=== PATIENT | female | born 1975 | race Caucasian/White ===

== ENCOUNTER → 2017-03-12 | Outpatient (CLI) | payer MEDICAID | LOC: FIMAGING 13:57 | PROVIDERS: ATTEND Obstetrics & Gynecology | DX: O09.521 Supervision of elderly multigravida, first trimester (principal); O34.219 Maternal care for unspecified type scar from previous cesarean delivery; Z3A.12 12 weeks gestation of pregnancy ==

== ENCOUNTER → 2017-05-07 | Outpatient (CLI) | payer MEDICAID | LOC: FIMAGING 13:24 | PROVIDERS: ATTEND Obstetrics & Gynecology | DX: O09.522 Supervision of elderly multigravida, second trimester (principal); Z3A.20 20 weeks gestation of pregnancy; Z98.891 History of uterine scar from previous surgery ==

== ENCOUNTER 2017-07-13 19:10 | Inpatient (IN) | payer MEDICAID ==
[2017-07-13] MEDS ORDERED: MAGNESIUM SULF 4 GM/WATER 100 ML IV ONE ×2 (19:27→20:00)
[2017-07-13] MEDS ORDERED: LABETALOL HCL 5 MG/ML 20 ML MDV IV ONE (19:30)
[2017-07-13] MEDS ORDERED: BETAMETHASONE IM SYRINGE IM ONE (19:30)
[2017-07-13] MEDS ORDERED: OXYTOCIN/NORMAL SALINE 1,000 ML IV PRN (20:00)
[2017-07-13] MEDS ORDERED: AMMONIA AROMATIC 1 EACH AMP IH PRN (20:00)
[2017-07-13] MEDS ORDERED: OLIVE OIL 118 ML BTL MISC PRN (20:00)
[2017-07-13] MEDS ORDERED: LIDOCAINE 1% 300 MG/30 ML SDV SC PRN (20:00)
[2017-07-13] MEDS ORDERED: EPSOM SALT 454 GM TP PRN (20:00)
[2017-07-13] MEDS ORDERED: TERBUTALINE SULFATE 1 MG/ML VIAL IV PRN (20:00)
[2017-07-13] MEDS ORDERED: MISOPROSTOL 200 MCG TAB PO PRN (20:00)
[2017-07-13] MEDS ORDERED: CALCIUM GLUC 10% 1 GM/10 ML VIAL IVP PRN (20:00)
[2017-07-13] MEDS ORDERED: LR 1,000 ML IV PRN (20:00)
--- NOTE | 2017-07-13 20:04 | PDGENHP ---
History and Physical - Chief Complaint Severe Hypertension - History of Present Illness Ramya is a 42 yo at 30w0d by ROCIO of 09/21/17 (based on 10 wk US that was not consistent with ROCIO of 09/13/17 from LMP) who was told to present to [facility] L&D this afternoon after PIH labs came back markedly abnormal - told to come here due to EGA. H/o prior for arrest, but no h/o GHTN or PIH with her prior . No personal h/o chronic HTN or renal disease. No issues with elevated BP prior to this in this . Subjectively she reports that last week she started to develop worsening swelling initially in her feet, then upper legs, then in the past 1-2 days her hands and face. She denies any new/evolving GILLIAM or visual changes, no RUQ pain. Had labs drawn this afternoon that came back with LFT's > 200 and platelets < 100k - told to come right in. Initial pressures here in on L&D were 220/110 and repeat labs below confirmed severe pre-eclampsia. BP Initially controlled with IV hypertensive emergency protocol with Labetalol 20mg, then 40mg, then 80mg - all spaced out by 20 minutes with repeat doses given for persistent severe range pressures. She was started on mag with 4g bolus and then 2 g/hr immediately and also given BMZ immediately. While BP did get under control, we were seeing intermittent variable decels for baby that were never deep or recurrent (pt not really feeling discrete contractions), but persistent over her evaluation in triage. I performed a bedside ARVIND that was 7.62, baby also breech on that US. I did consult with Perinatology fellow javascript application developer and reviewed history and presentation and she agreed with a plan to move towards delivery. otherwise complicated by AMA, h/o CS as above (plan is repeat). There was concern for suspected bicuspid aortic valve on 20 wk anatomy scan but had f/u images (potentially echo?) that confirmed normal anatomy, per pt report. NIPT normal XY. History Information - Allergies/Home Medication List Allergies/Adverse Reactions: No Known Allergies Allergy (Unverified 07/13/17 19:30) I have personally reviewed and updated: family history, medical history, social history, surgical history - Past Medical History no pertinent PMH - Surgical History Reports: no pertinent surgical hx Review of Systems Review of Systems: ROS: 10pt was reviewed & negative except for what was stated in HPI & below Physical Exam Physical Exam: NAD, although appears tired. Lungs CTAB, Heart RRR. Abd gravid, soft, non-tender. No particular RUQ pain with palpation. LE +2 pitting edema, same with UE in the hands. +2 reflexes upper and lower bilat, 1 beat clonus. Temp Pulse Resp BP Pulse Ox 69 214/122 H 07/13/17 19:40 07/13/17 19:40 Lab Data & Imaging Review 07/13/17 20:08 07/13/17 20:08 LABORATORY 07/13/17 07/13/17 07/13/17 21:54 21:30 21:10 WBC RBC Hgb Hct MCV MCH MCHC RDW Plt Count MPV Neut % (Auto) Lymph % (Auto) [place] % (Auto) Eos % (Auto) Baso % (Auto) Nucleat RBC Rel Count Absolute Neuts (auto) Absolute Lymphs (auto) Absolute Monos (auto) Absolute Eos (auto) Absolute Basos (auto) Absolute Nucleated RBC Immature Gran % Immature Gran # PT REJ REJ INR REJ REJ Fibrinogen REJ REJ BUN Creatinine Estimated GFR Uric Acid Magnesium AST ALT Lactate Dehydrogenase Urine Color YENNY Urine Appearance HAZY Urine pH 5.0 (5.0-7.5) Ur Specific [place] 1.031 H (1.002-1.030) Urine Protein 3+ H (NEGATIVE) Urine Ketones NEGATIVE (NEGATIVE) Urine Blood 3+ H (NEGATIVE) Urine Nitrate NEGATIVE (NEGATIVE) Urine Bilirubin NEGATIVE (NEGATIVE) Urine Urobilinogen NEGATIVE EU EU (0.2-1.0) Ur Leukocyte Esterase NEGATIVE (NEGATIVE) Urine RBC 50-182 /hpf H /hpf (0-3) Urine WBC 10-15 /hpf H /hpf (0-3) Ur Epithelial Cells TRACE /lpf /lpf (NONE-1+) Hyaline Casts >182 /lpf H /lpf (0-1) Granular Casts 5-15 /lpf /lpf (0-1) Urine Mucus TRACE /lpf /lpf (NONE-1+) Ur Random Creatinine 83.4 mg/dL mg/dL U Random Total Protein Pending Urine Glucose NEGATIVE (NEGATIVE) Patient ABO/Rh Antibody Screen 07/13/17 07/13/17 07/13/17 20:08 20:08 20:08 WBC 11.86 10^3/uL H 10^3/uL (3.80-9.50) RBC 4.69 10^6/uL 10^6/uL (4.18-5.33) Hgb 14.2 g/dL g/dL (12.6-16.3) Hct 40.4 % % (38.0-47.0) MCV 86.1 fL fL (81.5-99.8) MCH 30.3 pg pg (27.9-34.1) MCHC 35.1 g/dL g/dL (32.4-36.7) RDW 13.2 % % (11.5-15.2) Plt Count 58 10^3/uL L 10^3/uL (150-400) MPV 11.8 fL H fL (8.7-11.7) Neut % (Auto) 73.7 % % (39.3-74.2) Lymph % (Auto) 15.7 % % (15.0-45.0) [place] % (Auto) 7.9 % % (4.5-13.0) Eos % (Auto) 1.0 % % (0.6-7.6) Baso % (Auto) 0.3 % % (0.3-1.7) Nucleat RBC Rel Count 0.3 % H % (0.0-0.2) Absolute Neuts (auto) 8.74 10^3/uL H 10^3/uL (1.70-6.50) Absolute Lymphs (auto) 1.86 10^3/uL 10^3/uL (1.00-3.00) Absolute Monos (auto) 0.94 10^3/uL H 10^3/uL (0.30-0.80) Absolute Eos (auto) 0.12 10^3/uL 10^3/uL (0.03-0.40) Absolute Basos (auto) 0.03 10^3/uL 10^3/uL (0.02-0.10) Absolute Nucleated RBC 0.03 10^3/uL H 10^3/uL (0-0.01) Immature Gran % 1.4 % H % (0.0-1.1) Immature Gran # 0.17 10^3/uL H 10^3/uL (0.00-0.10) PT INR Fibrinogen BUN 14 mg/dL mg/dL (7-23) Creatinine 0.6 mg/dL mg/dL (0.6-1.0) Estimated GFR > 60 Uric Acid 5.0 mg/dL mg/dL (2.5-6.8) Magnesium 2.1 mg/dL mg/dL (1.6-2.3) AST 259 IU/L H IU/L (14-46) ALT 203 IU/L H IU/L (9-52) Lactate Dehydrogenase > 2150 IU/L H IU/L (313-618) Urine Color Urine Appearance Urine pH Ur Specific [place] Urine Protein Urine Ketones Urine Blood Urine Nitrate Urine Bilirubin Urine Urobilinogen Ur Leukocyte Esterase Urine RBC Urine WBC Ur Epithelial Cells Hyaline Casts Granular Casts Urine Mucus Ur Random Creatinine U Random Total Protein Urine Glucose Patient ABO/Rh A POSITIVE Antibody Screen NEGATIVE 07/13/17 20:08 07/13/17 20:08 Patient ABO/Rh A POSITIVE 07/13/17 20:08 Uric Acid 5.0 mg/dL (2.5-6.8) 07/13/17 20:08 AST 259 IU/L (14-46) H 07/13/17 20:08 ALT 203 IU/L (9-52) H 07/13/17 20:08 Lactate Dehydrogenase > 2150 IU/L (313-618) H 07/13/17 20:08 Temp Pulse Resp BP Pulse Ox 69 172/103 H 07/13/17 20:47 07/13/17 20:47 Imaging Review: Bedside US shows fetus with normal FHR and gross motor movement. Fundal placenta. ARVIND 7.62. Fetus is breech with head maternal RUQ. FHR 130s, moderate variability, accels present by GA criteria, intermittent but persistent variable and questionably late decelerations. Assessment & Plan Assessment: 42 yo at 30w0d with pre-eclampsia with severe features, and non- reassuring FHR tracing. Discussed case with on-call MFM at who recommended moving towards delivery. Overall, quite severe disease with labs worsening just over first 4 hour interval, most recent plts 56k. BP's have been controlled with IV labetalol (20, 40 then 80mg IV doses), will start on PO controller med postop. Mag bolus and infusion started, will continue for 24 hrs postop, at least. FHR tracing category II with recurrent variable decels, some potentially late in morphology/timing. Normal ARVIND, but concerning the in this context. BMZ#1 given immediately upon admission, but this was approximately 2000 this evening - approximately 3 hrs prior to delivery. I had a long discussion with parents that while we might be able to stabilize BP for the moment, we should consider moving towards delivery for one bc of dropping platelets precluding safe delivery, and also because of concern for baby with tracing. Will goto sleep for , we have [address] and code white products ready in the event of extra bleeding. Counseled patient that hemorrhage can occur in this situation and that hysterectomy a possibility. FIRST COAT OPERATOR was able to speak with patient prior to going back to the OR. SARAH
[2017-07-13] MEDS ORDERED: LABETALOL HCL 5 MG/ML 20 ML MDV IVP ONE (20:07)
[2017-07-13] MEDS: Mag Sulf 500 ML IV SCH (20:22)
[2017-07-13] MEDS ORDERED: LIDOCAINE 2% JELLY 5 ML TUBE ONE (20:28)
[2017-07-13 21:23] LABS: PLATELET COUNT 58 10^3/uL (150-400)
[2017-07-13] MEDS ORDERED: ceFAZolin 2 GM/DEXTROSE 100 ML IV ONE ×2 (22:01→22:08)
[2017-07-13] MEDS ORDERED: LR 500 ML IV ONE ×2 (22:01→22:08)
[2017-07-13] MEDS ORDERED: fentaNYL 100 MCG/2 ML INJ ONE ×2 (22:18→22:19)
[2017-07-13] MEDS ORDERED: PROPOFOL/EMULSION 500 MG/50 ML BOTTLE IV ONE (22:19)
[2017-07-13] MEDS ORDERED: ROCURONIUM 50 MG/5 ML VIAL ONE (22:21)
[2017-07-13] MEDS ORDERED: LIDOCAINE 2% 5 ML SDV ONE (22:21)
[2017-07-13] MEDS ORDERED: DEXAMETHASONE 4 MG/ML VIAL ONE (22:22)
[2017-07-13] MEDS ORDERED: ONDANSETRON 4 MG/2 ML VIAL ONE (22:22)
[2017-07-13] MEDS ORDERED: ceFAZolin 2 GM/SWFI 2 GM/20 ML SYR IVP ONE (22:30)
[2017-07-13] MEDS ORDERED: LR 1,000 ML IV SCH ×2 (22:30)
[2017-07-13 22:44] LABS: PLATELET COUNT 46 10^3/uL (150-400)
[2017-07-13] MEDS ORDERED: OXYTOCIN 10 UNIT/ML VIAL ONE (22:45)
[2017-07-13] MEDS ORDERED: TERBUTALINE SULFATE 1 MG/ML VIAL ONE (22:45)
[2017-07-13] MEDS ORDERED: AMMONIA AROMATIC 1 EACH AMP IH ONE (22:45)
[2017-07-13] MEDS ORDERED: HEMABATE 250 MCG/1 ML AMP IM ONE (22:45)
[2017-07-13] MEDS ORDERED: LIDOCAINE 1% 300 MG/30 ML SDV ONE (22:45)
[2017-07-13] MEDS ORDERED: MISOPROSTOL 200 MCG TAB ONE (22:45)
[2017-07-13 22:52] LABS: INR 0.88 (0.83-1.16); PROTIME(PATIENT) 12.2 SEC (12.0-15.0)
[2017-07-13] MEDS ORDERED: OXYTOCIN 100 UNITS/10 ML VIAL ONE (23:32)
[2017-07-13] MEDS ORDERED: SUGAMMADEX SODIUM 200 MG/2 ML VIAL IVP ONE (23:48)
[2017-07-13] MEDS ORDERED: HYDROmorphONE/DILAUDID 2 MG/ML INJ ONE (23:57)
--- NOTE | 2017-07-14 00:05 | POSTOPPROG ---
Post Op Note Date of Operation: 07/14/17 Surgeon: Curt Alvarado Cost Manager: Maura Echeverria RN Anesthesia: GET(General Endotracheal) Pre-op Diagnosis: Pre-eclampsia with severe features, Non-reassuring FHR tracing Post-op Diagnosis: Same, Breech fetus with double nuchal cord and true knot Procedure: Unscheduled RLTCS at 30 wks Findings: Minimal scar tissue, breech fetus, double nuchal cord and true knot Inf/Abcess present in the surg proc area at time of surgery?: No EBL: 700cc Complications: None Specimen(s): Cord blood gasses collected, placenta sent to pathology.
--- NOTE | 2017-07-14 00:15 | SUROPNOTE ---
[facility] Operative Report - Surgery Date of Operation: 07/14/17 Surgeon: Curt Alvarado Flight Test Shop Mechanic: Maura Echeverria RN Anesthesia: GET(General Endotracheal) Pre-op Diagnosis: Pre-eclampsia with severe features, Non-reassuring FHR tracing Post-op Diagnosis: Same, Breech fetus with double nuchal cord and true knot Procedure: Unscheduled RLTCS at 30 wks Findings: Minimal scar tissue, breech fetus, double nuchal cord and true knot Inf/Abcess present in the surg proc area at time of surgery?: No EBL: 700cc Complications: None Specimen(s): Cord blood gasses collected, placenta sent to pathology. Technique: The patient was taken to the OR where we prepared to induce w general anesthesia. The patient was then positioned supine with a leftward tilt and a time-out was performed. She was given weight-based antibiotics prior to skin incision - Ancef 2 grams. The abdomen was prepped and draped in normal sterile fashion. As soon as we were given the OK from anesthesia, a Pfannenstiel skin incision was made with the scalpel and carried down to the fascia in the same location as her prior scar. The fascia was incised in the midline and the incision extended bilaterally bluntly. The fascia was dissected off of the underlying rectus muscles superiorly and inferiorly also bluntly with traction. The rectus were in the midline and the peritoneum identified and entered bluntly without issue. Minimal adhesions encountered as described in findings. The peritoneal incision was extended and the bladder blade was then placed. The vesicouterine junction was identified and a bladder flap not created. A transverse incision was made with the scalpel in the lower uterine segment and extended with cephalad and caudad traction on the incision edges. The breech was encountered and easily elevated out of the pelvis and delivered very carefully with standard breech maneuvers. Once delivered to the level of the armpits it was clear we had a double nuchal cord. Ultimately delivered the head quite atraumatically as well and NICU present sterilly on the field to place baby in warming bag so we could do 60 seconds of delayed cord clamping. The nose and mouth were bulb suctioned. Cord was clamped and cut then and segment reserved for cord blood gases, placenta also was sent to pathology. The uterus was then exteriorized and carefully wiped of all debris. The uterus was closed in two layers - the first layer was running with 180 0-vloc and the second a vertical imbricating layer using 0-vicryl. The gutters were cleared of all clots. The uterine incision was re-inspected and found to be hemostatic after placement of additional figure of eight sutures of 3-0 vicryl - two at the left corner, suspect we were close to uterines and needed an O'Learly stitch on the left side. Ultimately very dry afterwards in that location. The uterus was then returned to the abdomen. Carina powder placed along the incision. The fascia was elevated and the rectus muscles and subcutaneous tissues were found to be hemostatic. The fascia was closed with a running 0- Vicryl - two sutures meeting in the midline. The subcutaneous tissues were irrigated and hemostasis obtained. The subcutaneous space was closed with interrupted sutures of 2-0 vicryl./ The skin was closed with 4-0 vloc undyed and then covered with Medipore dressing. The patient tolerated the procedure and was taken to recovery in stable condition. Lap, needle, sponge, and instrument count were announced as correct times two. I was present and scrubbed for the entire case.
[2017-07-14] MEDS ORDERED: PROMETHAZINE HCL 25 MG/ML INJ IVP PRN (00:31)
[2017-07-14] MEDS ORDERED: ACETAMINOPHEN 325 MG TAB PO PRN (00:31)
[2017-07-14] MEDS ORDERED: NALOXONE HCL 0.4 MG/ML INJ IVP PRN ×2 (00:34→00:41)
--- NOTE | 2017-07-14 00:36 | PDANEPAE ---
ANE History of Present Illness severe preeclampsia , repeat ANE Past Medical History Past Medical History: essentially negative - Cardiovascular History Hx Hypertension: No - Pulmonary History Hx Sleep Apnea: No ANE Review of Systems Review of Systems: severe preeclampsia with swelling, hypertension, abnormal labs - Exercise capacity Exercise capacity: unable to assess ANE Patient History - Allergies Allergies/Adverse Reactions: No Known Allergies Allergy (Unverified 07/13/17 19:30) - NPO status NPO Since - Liquids (Date): 07/13/17 NPO Since - Liquids (Time): 22:00 NPO Since - Solids (Date): 07/13/17 NPO Since - Solids (Time): 15:00 - Anes Hx Anes Hx: no prior problems (fractured leg as child, prev ) - Smoking Hx Smoking Status: Never smoked Marijuana use: No - Alcohol Use Alcohol Use: None - Family Anes Hx Family Anes Hx: neg - N/A ANE Labs/Vital Signs - Labs Result Diagrams: 07/13/17 22:40 07/13/17 20:08 - Vital Signs Blood Pressure: 152/97 Heart Rate: 69 Respiratory Rate: 17 O2 Sat (%): 94 Height: 154.94 cm Weight: 77.111 kg ANE Physical Exam - Airway Neck exam: FROM Mallampati Score: Class 2 Mouth exam: normal dental/mouth exam - Pulmonary Pulmonary: no respiratory distress - Cardiovascular Cardiovascular: regular rate and rhythym - ASA Status ASA Status: III ANE Anesthesia Plan Anesthesia Plan: general endotracheal anesthesia Urgent/Emergent Case: Cynthia skinner completed preop but documented later for safe timely pt care
[2017-07-14] MEDS ORDERED: ONDANSETRON 4 MG/2 ML VIAL IVP PRN (00:41)
[2017-07-14] MEDS ORDERED: PHENYLEPHRINE HCL 100 MCG/ML SYR IVP PRN (00:41)
[2017-07-14] MEDS ORDERED: epHEDrine SULFATE 10 MG/ML SYR IVP PRN (00:41)
--- NOTE | 2017-07-14 00:41 | POSTANESTH ---
Post Anesthetic Evaluation Cardiovascular Status: Similar to Pre-Op Cond Respiratory Status: Normal, Stable Level of Consciousness/Mental Status: Can Participate in Eval Pain Control: Adequate, Prn Tx Ordered Nausea/Vomiting Control: Adequate, Prn Tx Ordered Complications Possibly Related to Anesthesia: None Noted (continues on magnesium for severe preeclampsia, pain control with IV meds, awake and talking)
[2017-07-14] MEDS: HYDROmorphONE/DILAUDID 6 MG/30 ML PCA IV PRN ×2 (01:13→09:49)
[2017-07-14] MEDS: LABETALOL HCL 100 MG TAB PO SCH ×2 (02:04→11:50)
[2017-07-14 03:46] LABS: PLATELET COUNT 57 10^3/uL (150-400)
[2017-07-14] MEDS: Mag Sulf 500 ML IV SCH (06:37)
[2017-07-14] MEDS: SIMETHICONE 80 MG TAB CHEW PO PRN ×4 (09:05→21:14)
[2017-07-14] MEDS: DOCUSATE SODIUM 100 MG CAP PO PRN ×2 (09:05→21:14)
[2017-07-14 09:43] LABS: PLATELET COUNT 75 10^3/uL (150-400)
--- NOTE | 2017-07-14 10:04 | OBPP ---
Progress Note Assessment/Plan: Assessment: s/p repeat @ 30 weeks ega for pre-eclampsia with severe features POD #1 Mag infusing @ 2 gm/hr BPs since delivery stable, labs improving Plan: Continue magnesium at 2 gm/hr - will plan to d/c 24 hours postop if stable Repeat labs pending at this time Continue to monitor BPs and urine output closely 07/14/17 09:56 07/14/17 11:04 07/14/17 11:08 Subjective/ Course: 07/14/17 10:49 Patient feeling good this morning other than "weak" from magnesium. States pain well controlled with IV pain medication. Sipping on clear liquids. Anxious to see baby - hasn't seen him since . Denies h/a, visual changes, epigastric pain 07/14/17 11:01 Objective: 07/14/17 09:32 07/14/17 06:45 Patient ABO/Rh A POSITIVE 07/13/17 20:08 Uric Acid 5.5 mg/dL (2.5-6.8) 07/14/17 06:45 Total Bilirubin 0.7 mg/dL (0.1-1.4) 07/14/17 02:40 Conjugated Bilirubin 0.5 mg/dL (0.0-0.5) 07/14/17 02:40 Unconjugated Bilirubin 0.2 mg/dL (0.0-1.1) 07/14/17 02:40 AST 175 IU/L (14-46) H 07/14/17 06:45 ALT 162 IU/L (9-52) H 07/14/17 06:45 Lactate Dehydrogenase 2159 IU/L (313-618) H 07/14/17 06:45 Temp Pulse Resp BP Pulse Ox 36.6 C 62 18 139/92 H 96 07/14/17 00:16 07/14/17 02:04 07/14/17 00:56 07/14/17 02:04 07/14/17 00:56 MGSO4 infusing at 2 gm/hour- most recent mg level 7.2 LOC: awake, alert and oriented. VSS - BPs avg 130s/80s overnight, no severe range pressures since delivery - afebrile Respirations unlabored - lungs CTA Extremities with large edema - +2/3 Reflexes 1+ Lochia scant Fundus firm Abdominal dressing dry/intact BS present X4 quads - hypoactive - no passing gas yet Nipples intact - has started pumping Urine output averaging > 60 cc/hour Labs improving - most recent pending now Uterine Position/Fundal Height: At Umbilicus Uterine Tone: Firm Physical Exam - Physical Exam EENT: PERRL/EOMI Neck: non-tender Respiratory: lungs clear, normal breath sounds Cardiac/Chest: normal peripheral pulses, regular rate, rhythm, edema ( generalized - 2/3+ pedal, lower extremeties ) Abdomen: hypoactive bowel sounds, soft, dressing (dry/intact) Extremities: normal range of motion, pedal edema DTR- Lower Extremities: Knee (R): 1+, Knee (L): 1+ Skin: normal color Neuro/Psych: no motor/sensory deficits, alert, normal mood/affect, oriented x 3
--- NOTE | 2017-07-14 14:25 | PDMN ---
Medical Necessity Medical necessity: Pt meets IP criteria; admit for labor & delivery; per H&P & order 07/13/17
[2017-07-14 19:37] LABS: PLATELET COUNT 105 10^3/uL (150-400)
--- NOTE | 2017-07-14 23:24 | OBPP ---
Progress Note Assessment/Plan: Assessment:42 yr old POD#1 s/p R-LTCS under general anesthesia at 30 wk gestation in the setting of preeclampsia with HELLP. Labs are trending towards normal. BPs have been stable. Good urine output. Plan: Will dc magsulfate at the 24 hours after delivery sherri - around midnight. Will dc WATER PUMP SERVICER at that time too and transition to po meds. Will repeat labs in AM May resume a regular diet after magsulfate has been stopped. Plan to transfer to Mom/Baby in AM. 07/14/17 23:35 07/14/17 23:39 Subjective/ Course: 07/14/17 10:49 Patient feeling good this morning other than "weak" from magnesium. States pain well controlled with IV pain medication. Sipping on clear liquids. Anxious to see baby - hasn't seen him since . Denies h/a, visual changes, epigastric pain 07/14/17 11:01 07/14/17 23:38 Pt doing well, feels fatigued from the magsulfate. Pain well controlled with WATER PUMP SERVICER. Has tolerated some sips and ice chips without nausea. Was able to see baby this evening - doing well in the NICU. No GILLIAM, no vis changes, no epigastric pain, no chest pain. Has been pumping. Objective: 07/14/17 19:21 07/14/17 18:10 Patient ABO/Rh A POSITIVE 07/13/17 20:08 Uric Acid 6.0 mg/dL (2.5-6.8) 07/14/17 18:10 Total Bilirubin 0.7 mg/dL (0.1-1.4) 07/14/17 02:40 Conjugated Bilirubin 0.5 mg/dL (0.0-0.5) 07/14/17 02:40 Unconjugated Bilirubin 0.2 mg/dL (0.0-1.1) 07/14/17 02:40 AST 122 IU/L (14-46) H 07/14/17 18:10 ALT 139 IU/L (9-52) H 07/14/17 18:10 Lactate Dehydrogenase 1880 IU/L (313-618) H 07/14/17 18:10 Temp Pulse Resp BP Pulse Ox 36.6 C 60 18 131/75 H 96 07/14/17 00:16 07/14/17 11:50 07/14/17 00:56 07/14/17 11:50 07/14/17 00:56 37.0 54 16 115/72 Gen - pleasant, NAD, pumping CV-RRR chest - CTAB abd - soft, + BS, fundus firm at u-2 inc - C/D/I, dressing has been removed ext - SCDs in place, no calf tenderness, 2+ pedal edema Uterine Position/Fundal Height: Umbilicus -2 Uterine Tone: Firm
[2017-07-15] MEDS: LABETALOL HCL 100 MG TAB PO SCH ×2 (00:06→13:09)
[2017-07-15] MEDS: IBUPROFEN 600 MG TAB PO PRN ×3 (05:50→19:26)
[2017-07-15 06:25] LABS: PLATELET COUNT 133 10^3/uL (150-400)
--- NOTE | 2017-07-15 07:59 | OBPP ---
Progress Note Assessment/Plan: Assessment: 42 y/o POD #2 s/p R-LTCS under general anesthesia at 30 wk gestation in the setting of preeclampsia with HELLP Plan: Pt is stable Labs are trending towards normal, will check in am 07/16 BPs have been stable, cont to monitor closely s/p MgSO4 Good urine output, last 12 hours 1500/2000; ramon to be removed Plan to transfer to Mom/Baby this morning Routine pp care 07/15/17 07:59 Subjective/ Course: 07/14/17 10:49 Patient feeling good this morning other than "weak" from magnesium. States pain well controlled with IV pain medication. Sipping on clear liquids. Anxious to see baby - hasn't seen him since . Denies h/a, visual changes, epigastric pain 07/14/17 11:01 07/14/17 23:38 Pt doing well, feels fatigued from the magsulfate. Pain well controlled with CALTRANS EQUIPMENT OPERATOR. Has tolerated some sips and ice chips without nausea. Was able to see baby this evening - doing well in the NICU. No GILLIAM, no vis changes, no epigastric pain, no chest pain. Has been pumping. 07/15/17 08:02 Pt seen and examined. Feels much better. Pain is well controlled, just took Motrin. Sandi regular diet this am. Ramon just removed. Denies any HAs, visual changes, RUQ pain. No f/c/n/vb/CP or SOB. Moderate lochia. Baby boy is in NICU; she is pumping. Objective: 07/15/17 05:35 07/15/17 05:35 Patient ABO/Rh A POSITIVE 07/13/17 20:08 Uric Acid 6.9 mg/dL (2.5-6.8) H 07/15/17 05:35 Total Bilirubin 0.2 mg/dL (0.1-1.4) D 07/15/17 05:35 Conjugated Bilirubin 0.2 mg/dL (0.0-0.5) 07/15/17 05:35 Unconjugated Bilirubin 0.0 mg/dL (0.0-1.1) 07/15/17 05:35 AST 79 IU/L (14-46) H 07/15/17 05:35 ALT 119 IU/L (9-52) H 07/15/17 05:35 Lactate Dehydrogenase 1869 IU/L (313-618) H 07/15/17 05:35 Temp Pulse Resp BP Pulse Ox 36.6 C 60 18 131/75 H 96 07/14/17 00:16 07/14/17 11:50 07/14/17 00:56 07/14/17 11:50 07/14/17 00:56 Uterine Position/Fundal Height: Umbilicus -1 Uterine Tone: Firm Physical Exam - Physical Exam Respiratory: lungs clear, normal breath sounds Cardiac/Chest: regular rate, rhythm Abdomen: normal bowel sounds, soft, incision (C/D/I), other (Appropriate tenderness) Extremities: non-tender, swelling DTR- Lower Extremities: Plantar (R): 1+, Plantar (L): 1+ Skin: normal color, warm/dry Neuro/Psych: alert, normal mood/affect, oriented x 3
[2017-07-15] MEDS: SIMETHICONE 80 MG TAB CHEW PO PRN (09:28)
[2017-07-15] MEDS: DOCUSATE SODIUM 100 MG CAP PO PRN ×2 (09:28→21:43)
[2017-07-16] MEDS: OXYCODONE/APAP 5/325 TAB PO PRN ×4 (00:32→22:37)
[2017-07-16] MEDS: LABETALOL HCL 100 MG TAB PO SCH ×2 (00:43→13:10)
[2017-07-16] MEDS: IBUPROFEN 600 MG TAB PO PRN ×4 (01:32→22:35)
--- NOTE | 2017-07-16 10:54 | OBPP ---
Progress Note Assessment/Plan: Assessment: [id number] s/p repeat c/s (@30wks) POD#3 Pre-eclampsia with HELLP, s/p MgSO4 Pre-eclampsia labs improving baby in NICU Plan: routine PO care cont to monitor BPs/I&O labs PRN support PRN plan to d/c (to dorie) 24-48hrs 07/16/17 10:42 Subjective/ Course: 07/14/17 10:49 Patient feeling good this morning other than "weak" from magnesium. States pain well controlled with IV pain medication. Sipping on clear liquids. Anxious to see baby - hasn't seen him since . Denies h/a, visual changes, epigastric pain 07/14/17 11:01 07/14/17 23:38 Pt doing well, feels fatigued from the magsulfate. Pain well controlled with CONCRETE MIXING PLANT LABORER. Has tolerated some sips and ice chips without nausea. Was able to see baby this evening - doing well in the NICU. No GILLIAM, no vis changes, no epigastric pain, no chest pain. Has been pumping. 07/15/17 08:02 Pt seen and examined. Feels much better. Pain is well controlled, just took Motrin. Sandi regular diet this am. Maria just removed. Denies any HAs, visual changes, RUQ pain. No f/c/n/vb/CP or SOB. Moderate lochia. Baby boy is in NICU; she is pumping. Objective: 07/15/17 05:35 07/15/17 05:35 Patient ABO/Rh A POSITIVE 07/13/17 20:08 Uric Acid 6.9 mg/dL (2.5-6.8) H 07/15/17 05:35 Total Bilirubin 0.2 mg/dL (0.1-1.4) D 07/15/17 05:35 Conjugated Bilirubin 0.2 mg/dL (0.0-0.5) 07/15/17 05:35 Unconjugated Bilirubin 0.0 mg/dL (0.0-1.1) 07/15/17 05:35 AST 79 IU/L (14-46) H 07/15/17 05:35 ALT 119 IU/L (9-52) H 07/15/17 05:35 Lactate Dehydrogenase 1869 IU/L (313-618) H 07/15/17 05:35 Temp Pulse Resp BP Pulse Ox 36.2 C 75 16 144/88 H 94 07/16/17 08:00 07/16/17 08:00 07/16/17 00:30 07/16/17 08:00 07/16/17 00:30 Uterine Position/Fundal Height: At Umbilicus, Midline Uterine Tone: Firm Physical Exam - Physical Exam Neck: supple Respiratory: chest non-tender, lungs clear, normal breath sounds Cardiac/Chest: regular rate, rhythm Abdomen: non-tender, soft, incision (bruising present, but incision healing well , C/D/I) Extremities: pedal edema Skin: normal color, warm/dry Neuro/Psych: no motor/sensory deficits, alert, normal mood/affect, oriented x 3
[2017-07-16] MEDS: DOCUSATE SODIUM 100 MG CAP PO PRN (17:08)
[2017-07-17] MEDS: LABETALOL HCL 100 MG TAB PO SCH ×2 (02:22→18:19)
[2017-07-17] MEDS: IBUPROFEN 600 MG TAB PO PRN ×3 (04:46→19:35)
[2017-07-17] MEDS: DOCUSATE SODIUM 100 MG CAP PO PRN ×2 (11:15→19:35)
[2017-07-17] MEDS ORDERED: LABETALOL HCL 100 MG TAB PO ONE (11:27)
--- NOTE | 2017-07-17 11:33 | OBPP ---
Progress Note Assessment/Plan: Assessment: 42 y/o POD #4 s/p Rpt LTCS @ 30 weeks, seconary to HELLP syndrome now with continuously elevated BP. Plan: Will give another 100 mg of Labetalol now and re assess her response to this dose. If improved will increase to 300 mg Labetalol. Will keep as an inpatient for now. Baby is stable in NICU. 07/17/17 11:30 Subjective/ Course: 07/14/17 10:49 Patient feeling good this morning other than "weak" from magnesium. States pain well controlled with IV pain medication. Sipping on clear liquids. Anxious to see baby - hasn't seen him since . Denies h/a, visual changes, epigastric pain 07/14/17 11:01 07/14/17 23:38 Pt doing well, feels fatigued from the magsulfate. Pain well controlled with AGRICULTURAL SYSTEMS SPECIALIST. Has tolerated some sips and ice chips without nausea. Was able to see baby this evening - doing well in the NICU. No GILLIAM, no vis changes, no epigastric pain, no chest pain. Has been pumping. 07/15/17 08:02 Pt seen and examined. Feels much better. Pain is well controlled, just took Motrin. Sandi regular diet this am. Maria just removed. Denies any HAs, visual changes, RUQ pain. No f/c/n/vb/CP or SOB. Moderate lochia. Baby boy is in NICU; she is pumping. 07/17/17 11:27 Pt is feeling better today. She has good pain control with Po Ibuprofen only today. She is ambulating, voiding without difficulty and has min lochia, + BM yesterday. She is working on pumping and baby is doing well in the NICU. Objective: 07/15/17 05:35 07/15/17 05:35 Patient ABO/Rh A POSITIVE 07/13/17 20:08 Uric Acid 6.9 mg/dL (2.5-6.8) H 07/15/17 05:35 Total Bilirubin 0.2 mg/dL (0.1-1.4) D 07/15/17 05:35 Conjugated Bilirubin 0.2 mg/dL (0.0-0.5) 07/15/17 05:35 Unconjugated Bilirubin 0.0 mg/dL (0.0-1.1) 07/15/17 05:35 AST 79 IU/L (14-46) H 07/15/17 05:35 ALT 119 IU/L (9-52) H 07/15/17 05:35 Lactate Dehydrogenase 1869 IU/L (313-618) H 07/15/17 05:35 Temp Pulse Resp BP Pulse Ox 36.5 C 76 16 131/76 H 90 L 07/17/17 02:25 07/17/17 02:25 07/17/17 02:25 07/17/17 02:25 07/17/17 02:25 Uterine Position/Fundal Height: Umbilicus -2 Uterine Tone: Firm Physical Exam - Physical Exam General Appearance: WD/WN, alert, no apparent distress Neck: non-tender, full range of motion, supple Respiratory: chest non-tender, lungs clear, normal breath sounds Cardiac/Chest: regular rate, rhythm Abdomen: normal bowel sounds, incision (c/d/i) Extremities: swelling (2+), Elizabeth's sign (neg)
[2017-07-17] MEDS: NIFEdipine ER 30 MG TAB PO SCH (16:29)
[2017-07-18] MEDS: IBUPROFEN 600 MG TAB PO PRN ×4 (01:28→23:03)
[2017-07-18] MEDS: OXYCODONE/APAP 5/325 TAB PO PRN (05:27)
[2017-07-18] MEDS: DOCUSATE SODIUM 100 MG CAP PO PRN ×2 (09:22→23:03)
[2017-07-18] MEDS: NIFEdipine ER 30 MG TAB PO SCH (09:22)
--- NOTE | 2017-07-18 09:56 | OBPP ---
Progress Note Assessment/Plan: Assessment: s/p repeat @ 30 weeks ega for pre-eclampsia with severe features POD #5 Continued hypertension after changing labetalol to Nifedipene 30 mg yesterday afternoon - BPs 150-160s/90s overnight Plan: Will give 30 mg Nifedipine this am - monitor BPs throughout day, Consider increasing dose this afternoon if BPs not improved Reviewed with Yoana Sharma 07/14/17 09:56 07/14/17 11:04 07/14/17 11:08 07/18/17 09:49 Subjective/ Course: 07/14/17 10:49 Patient feeling good this morning other than "weak" from magnesium. States pain well controlled with IV pain medication. Sipping on clear liquids. Anxious to see baby - hasn't seen him since . Denies h/a, visual changes, epigastric pain 07/14/17 11:01 07/14/17 23:38 Pt doing well, feels fatigued from the magsulfate. Pain well controlled with BUSINESS PROCESS MODELER. Has tolerated some sips and ice chips without nausea. Was able to see baby this evening - doing well in the NICU. No GILLIAM, no vis changes, no epigastric pain, no chest pain. Has been pumping. 07/15/17 08:02 Pt seen and examined. Feels much better. Pain is well controlled, just took Motrin. Sandi regular diet this am. Maria just removed. Denies any HAs, visual changes, RUQ pain. No f/c/n/vb/CP or SOB. Moderate lochia. Baby boy is in NICU; she is pumping. 07/17/17 11:27 Pt is feeling better today. She has good pain control with Po Ibuprofen only today. She is ambulating, voiding without difficulty and has min lochia, + BM yesterday. She is working on pumping and baby is doing well in the NICU. 07/18/17 09:51 Feeling good this morning. Skin to skin with baby -pumping and baby doing well in NICU. Had headache last night after Nifedipine dose, but otherwise without complaints. Lochia scant, voiding, daily BM, tolerating regular diet and ambulating, edema improving. Pain well controlled with oral pain meds. Objective: 07/15/17 05:35 07/15/17 05:35 Patient ABO/Rh A POSITIVE 07/13/17 20:08 Uric Acid 6.9 mg/dL (2.5-6.8) H 07/15/17 05:35 Total Bilirubin 0.2 mg/dL (0.1-1.4) D 07/15/17 05:35 Conjugated Bilirubin 0.2 mg/dL (0.0-0.5) 07/15/17 05:35 Unconjugated Bilirubin 0.0 mg/dL (0.0-1.1) 07/15/17 05:35 AST 79 IU/L (14-46) H 07/15/17 05:35 ALT 119 IU/L (9-52) H 07/15/17 05:35 Lactate Dehydrogenase 1869 IU/L (313-618) H 07/15/17 05:35 Temp Pulse Resp BP Pulse Ox 37.1 C 97 16 166/95 H 93 07/18/17 08:45 07/18/17 08:45 07/18/17 08:45 07/18/17 08:45 07/18/17 08:45 VSS Respirations unlabored Edema improving - 1-2+ extremeties Lochia scant Fundus firm Abd Incision healing well - well approximated Nipples intact. Uterine Position/Fundal Height: At Umbilicus Uterine Tone: Firm Physical Exam - Physical Exam EENT: PERRL/EOMI Neck: non-tender, supple Respiratory: lungs clear Cardiac/Chest: regular rate, rhythm Abdomen: normal bowel sounds, soft, incision (clean/dry/intact) Extremities: swelling (1-2 +), Elizabeth's sign (neg) Skin: normal color Neuro/Psych: alert, normal mood/affect, oriented x 3
[2017-07-18] MEDS ORDERED: NIFEdipine ER 30 MG TAB PO ONE (14:30)
--- NOTE | 2017-07-18 16:21 | GCON ---
[f rep st] CONSULTATION DATE OF CONSULTATION: 07/18/2017 CHIEF COMPLAINT: Hypertension. HISTORY OF PRESENT ILLNESS: The patient is a pleasant 42-year-old female who was initially admitted to the hospital on 07/13/2017, after developing preeclampsia. She also had thrombocytopenia and elev ated liver enzymes as well. Her blood pressures when she first came into the hospital were documente d at 220/110. She was treated initially with labetalol. Further consultation was made in regard to delivery, and she subsequently underwent delivery. Despite , her blood pressures, however, have remained relatively elevated, with systolics generally reading in the 150s to 160s. S he was given a dose of nicardipine this morning at 30 mg and, despite that, blood pressures have stil l remained in the 160s. Hospitalist consultation was made for further recommendations. The patient states she has not had any known history of hypertension prior to coming into the hospital and states she has otherwise been healthy. No complaints of any chest pains or headaches. PAST MEDICAL HISTORY: None. PAST SURGICAL HISTORY: during this admission, but otherwise none prior. MEDICATIONS: None prior to coming into the hospital. ALLERGIES: No known drug allergies. FAMILY HISTORY: Mother and father are both living. No report of any family history of hypertension or resistant hypertension. SOCIAL HISTORY: The patient is a nonsmoker. No daily alcohol use. REVIEW OF SYSTEMS: CONSTITUTIONAL: No complaints of any fevers or chills. ENT: No recent upper re spiratory illnesses. CARDIOVASCULAR: No complaints of any chest pain, palpitations, or syncopal epi sodes. RESPIRATORY: No complaints of shortness of breath or productive cough. GI: No nausea, vomi ting, diarrhea, or constipation. : No report of any difficulty with urination. NEUROLOGIC: No c omplaints of headaches or focal weakness. HEMATOLOGIC: No history of any deep vein thrombosis or pu lmonary embolism. Psychiatric: No history of anxiety or depression. ENDOCRINE: No history of thyr oid abnormalities or diabetes. SKIN: No new skin rashes. Musculoskeletal: No focal joint pains. PHYSICAL EXAM: VITAL SIGNS: Temperature 37.1, blood pressure 163/105, heart rate 75, respirations 1 7, satting 91% on room air. GENERAL: She appears comfortable. She is awake, alert, conversant, no acute distress, able to provide good history. HEENT: Extraocular movements appear intact. No scler al icterus is noted. NECK: No thyroid enlargement appreciated. CHEST: Clear on auscultation. Nor mal respiratory effort. HEART: Regular. No murmurs are appreciated. ABDOMEN: Soft, nontender, no ndistended. No abdominal bruit noted. : No Maria catheter in place. EXTREMITIES: Trace edema, both lower extremities. NEUROLOGIC: Cranial nerves 2-12 appear grossly intact, with 5/5 strength in extremities. LABS: Most recent CBC showed a white blood cell count of 18, hemoglobin 10, platelets 133. Creatini ne 0.8. AST 79, ALT 119. These are trending down. ASSESSMENT/PLAN: 1. Hypertension. Still with elevated blood pressure readings, despite delivery, in the patient rajendra lawson in with preeclampsia. Nicardipine was administered this morning which she seemed to tolerate fine without any major side effects. However, no major improvement in blood pressure readings thus far. I recommend we increase the dose to 60 mg daily, and I will give an additional dose of 30 mg of alejandra rdipine this afternoon. I did encourage the patient to obtain a blood pressure cuff for home monitor ing, as we will need to follow her closely to make sure she is appropriately treated and does not bec ome overtreated in regard to her blood pressure, as this may improve as she gets back home and longer past her delivery. We did discuss that patients have preeclampsia do have a high risk of developing hypertension in the future, so periodic monitoring of her blood pressure moving forward would be rec ommended. 2. Thrombocytopenia. Platelets appear to be rebounding back up. Will recheck a CBC in the morning for reassessment. 3. Transaminitis. Liver enzymes as well seem to be trending down. Will check a comprehensive metab olic panel with morning labs for assessment. 4. Deep venous thrombosis prophylaxis. Low risk. Ambulatory. 5. Disposition. If blood pressures appear reasonable, I think we can probably allow her to discharg e from the hospital tomorrow with a plan for outpatient followup. I appreciate the opportunity to help out in this patient's care. Will follow along and follow up wit h her tomorrow morning. /[id number]/MODL
[2017-07-19] MEDS: IBUPROFEN 600 MG TAB PO PRN ×2 (05:15→17:59)
[2017-07-19 05:29] LABS: PLATELET COUNT 379 10^3/uL (150-400)
--- NOTE | 2017-07-19 08:34 | HOSPPROG ---
Hospitalist Progress Note Assessment/Plan: Subjective Follow-up on hypertension Overnight no acute events. Patient states she does have a mild headache. We reviewed her follow-up blood test this morning and we discussed that her platelets and liver enzymes have normalized. I discussed with her that I think at this point time we should keep the blood pressure medications at the current dose and follow them over the coming days. We discussed previously about obtaining a home blood pressure cuff to follow closely over the coming months. Objective Vital signs as detailed below Physical exam General-he patient is sitting in a chair with her baby in her lap. No acute distress. Lungs-normal respiratory effort Abdomen-nondistended -no Maria catheter in place Extremities-no significant pitting edema Labs as detailed below Assessment plan 1. Hypertension-we have seen some downward trend in her blood pressures over the past 24 hr. She did have systolic blood pressure reading in the 140s overnight. With this trend I recommend that we continue with the current dosing of nifedipine at 60 mg daily. I would recommend following blood pressures over the coming 2-3 days at this dose before making further adjustments. I do not think she needs to stay in the hospital for this time. This could be followed up in the outpatient setting sometime later this week. If she needs assistance with outpatient follow-up I am happy to help out and I could see her in my office sometime later this week. 2. Thrombocytopenia-resolved 3. Transaminitis-resolved 4. Disposition-from a medical standpoint I am comfortable with discharging from the hospital today with a plan for short-term outpatient follow-up on her blood pressures with the current dosing of nifedipine at 60 mg daily Objective: Vital Signs Temp Pulse Resp BP Pulse Ox 36.8 C 83 18 152/104 H 95 07/19/17 05:00 07/19/17 05:00 07/19/17 05:00 07/19/17 05:00 07/19/17 05:00 Laboratory Results 07/19/17 05:20 07/19/17 05:20 PT 12.2 SEC (12.0-15.0) 07/13/17 22:40 INR 0.88 (0.83-1.16) 07/13/17 22:40 ICD10 Worksheet Patient Problems: Problems Problem Status Onset Essential hypertension Acute Essential hypertension Acute - ICD10 Problem Qualifiers (1) Essential hypertension (2) Essential hypertension
[2017-07-19] MEDS ORDERED: PRENATAL VIT 1 EACH TAB PO SCH (09:00)
[2017-07-19] MEDS ORDERED: NIFEdipine ER 60 MG TAB PO SCH (09:00)
--- NOTE | 2017-07-19 13:08 | OBPP ---
Progress Note Assessment/Plan: Assessment: 42 y/o POD #4 s/p Rpt LTCS @ 30 weeks, seconary to HELLP syndrome now with continuously elevated BP. Plan: Will give another 100 mg of Labetalol now and re assess her response to this dose. If improved will increase to 300 mg Labetalol. Will keep as an inpatient for now. Baby is stable in NICU. 07/17/17 11:30 Subjective/ Course: 07/14/17 10:49 Patient feeling good this morning other than "weak" from magnesium. States pain well controlled with IV pain medication. Sipping on clear liquids. Anxious to see baby - hasn't seen him since . Denies h/a, visual changes, epigastric pain 07/14/17 11:01 07/14/17 23:38 Pt doing well, feels fatigued from the magsulfate. Pain well controlled with REPAIRER EVAPORATOR. Has tolerated some sips and ice chips without nausea. Was able to see baby this evening - doing well in the NICU. No GILLIAM, no vis changes, no epigastric pain, no chest pain. Has been pumping. 07/15/17 08:02 Pt seen and examined. Feels much better. Pain is well controlled, just took Motrin. Sandi regular diet this am. Maria just removed. Denies any HAs, visual changes, RUQ pain. No f/c/n/vb/CP or SOB. Moderate lochia. Baby boy is in NICU; she is pumping. 07/17/17 11:27 Pt is feeling better today. She has good pain control with Po Ibuprofen only today. She is ambulating, voiding without difficulty and has min lochia, + BM yesterday. She is working on pumping and baby is doing well in the NICU. 07/18/17 09:51 Feeling good this morning. Skin to skin with baby -pumping and baby doing well in NICU. Had headache last night after Nifedipine dose, but otherwise without complaints. Lochia scant, voiding, daily BM, tolerating regular diet and ambulating, edema improving. Pain well controlled with oral pain meds. Objective: 07/19/17 05:20 07/19/17 05:20 Patient ABO/Rh A POSITIVE 07/13/17 20:08 Uric Acid 6.9 mg/dL (2.5-6.8) H 07/15/17 05:35 Total Bilirubin 0.4 mg/dL (0.1-1.4) 07/19/17 05:20 Conjugated Bilirubin 0.2 mg/dL (0.0-0.5) 07/15/17 05:35 Unconjugated Bilirubin 0.0 mg/dL (0.0-1.1) 07/15/17 05:35 AST 24 IU/L (14-46) 07/19/17 05:20 ALT 48 IU/L (9-52) 07/19/17 05:20 Lactate Dehydrogenase 1869 IU/L (313-618) H 07/15/17 05:35 Temp Pulse Resp BP Pulse Ox 36.8 C 79 16 155/101 H 93 07/19/17 08:40 07/19/17 08:40 07/19/17 08:40 07/19/17 08:40 07/19/17 08:40
--- NOTE | 2017-07-19 17:56 | OBPP ---
Progress Note Assessment/Plan: Assessment: 42 y/o POD #6 s/p Rpt LTCS @ 30 weeks, seconary to HELLP syndrome now with continuously elevated BP. Plan: We switched to Nifedepine XL 60 mg QD and she continues to have some elevated BP readings. Clinically she feels better and denies sx's of pre-eclampsia. Will d/c to [facility] today with Rx Ibuprofen, Percocet and Nifedepine XL 60 mg, Follow-up @ [facility] this week for a BP check, and reviewed [facility] precautions. 07/17/17 11:30 07/19/17 17:57 Subjective/ Course: 07/14/17 10:49 Patient feeling good this morning other than "weak" from magnesium. States pain well controlled with IV pain medication. Sipping on clear liquids. Anxious to see baby - hasn't seen him since . Denies h/a, visual changes, epigastric pain 07/14/17 11:01 07/14/17 23:38 Pt doing well, feels fatigued from the magsulfate. Pain well controlled with GUN SEALING MACHINE OPERATOR. Has tolerated some sips and ice chips without nausea. Was able to see baby this evening - doing well in the NICU. No GILLIAM, no vis changes, no epigastric pain, no chest pain. Has been pumping. 07/15/17 08:02 Pt seen and examined. Feels much better. Pain is well controlled, just took Motrin. Sandi regular diet this am. Maria just removed. Denies any HAs, visual changes, RUQ pain. No f/c/n/vb/CP or SOB. Moderate lochia. Baby boy is in NICU; she is pumping. 07/17/17 11:27 Pt is feeling better today. She has good pain control with Po Ibuprofen only today. She is ambulating, voiding without difficulty and has min lochia, + BM yesterday. She is working on pumping and baby is doing well in the NICU. 07/18/17 09:51 Feeling good this morning. Skin to skin with baby -pumping and baby doing well in NICU. Had headache last night after Nifedipine dose, but otherwise without complaints. Lochia scant, voiding, daily BM, tolerating regular diet and ambulating, edema improving. Pain well controlled with oral pain meds. 07/19/17 17:53 Pt is feeling well. Her pain is controlled with PO Ibuprofen and Percocet. She is ambulating and voiding without difficulty and has min lochia. She denies GILLIAM, scotomata, RUQ pain or s/sx's of pre-eclampsia. She is pumping and getting good amounts of colustrum. Baby is stable in NICU. Objective: 07/19/17 05:20 07/19/17 05:20 Patient ABO/Rh A POSITIVE 07/13/17 20:08 Uric Acid 6.9 mg/dL (2.5-6.8) H 07/15/17 05:35 Total Bilirubin 0.4 mg/dL (0.1-1.4) 07/19/17 05:20 Conjugated Bilirubin 0.2 mg/dL (0.0-0.5) 07/15/17 05:35 Unconjugated Bilirubin 0.0 mg/dL (0.0-1.1) 07/15/17 05:35 AST 24 IU/L (14-46) 07/19/17 05:20 ALT 48 IU/L (9-52) 07/19/17 05:20 Lactate Dehydrogenase 1869 IU/L (313-618) H 07/15/17 05:35 Temp Pulse Resp BP Pulse Ox 36.8 C 79 16 155/101 H 93 07/19/17 08:40 07/19/17 08:40 07/19/17 08:40 07/19/17 08:40 07/19/17 08:40 Uterine Position/Fundal Height: Umbilicus -3 Uterine Tone: Firm Physical Exam - Physical Exam General Appearance: WD/WN, alert, no apparent distress Neck: non-tender, full range of motion, supple Respiratory: chest non-tender, lungs clear, normal breath sounds Cardiac/Chest: regular rate, rhythm Abdomen: normal bowel sounds, incision (c/d/i with inferior eccomysis improving) Extremities: swelling (1+), Elizabeth's sign (neg) DTR- Lower Extremities: Knee (R): 3+, Knee (L): 3+
--- NOTE | 2017-07-19 18:05 | OBGCSDC ---
General Delivery Information - General Info : 2 Para: 2 Abortions: 0 L&D Analgesia/Anesthesia Type: General Admission Date: 07/13/17 Labs: Patient ABO/Rh A POSITIVE 07/13/17 20:08 Hct 36.4 % (38.0-47.0) L 07/19/17 05:20 - Hospital Course Antepartum: 07/19/17 18:01 [place] [facility] [place] [facility] @ 30 weeks with severe pre- eclampsia. HELLP syndrome Intrapartum: 07/19/17 18:05 Pt presented in HELP syndrome, with h/o LTCS with G1. Emergently taken to OR for Rpt c section @30 weeks under general anesthesia due thrombocytopenia. : 07/14/17 10:49 Patient feeling good this morning other than "weak" from magnesium. States pain well controlled with IV pain medication. Sipping on clear liquids. Anxious to see baby - hasn't seen him since . Denies h/a, visual changes, epigastric pain 07/14/17 11:01 07/14/17 23:38 Pt doing well, feels fatigued from the magsulfate. Pain well controlled with HANDLING TECH. Has tolerated some sips and ice chips without nausea. Was able to see baby this evening - doing well in the NICU. No GILLIAM, no vis changes, no epigastric pain, no chest pain. Has been pumping. 07/15/17 08:02 Pt seen and examined. Feels much better. Pain is well controlled, just took Motrin. Sandi regular diet this am. Maria just removed. Denies any HAs, visual changes, RUQ pain. No f/c/n/vb/CP or SOB. Moderate lochia. Baby boy is in NICU; she is pumping. 07/17/17 11:27 Pt is feeling better today. She has good pain control with Po Ibuprofen only today. She is ambulating, voiding without difficulty and has min lochia, + BM yesterday. She is working on pumping and baby is doing well in the NICU. 07/18/17 09:51 Feeling good this morning. Skin to skin with baby -pumping and baby doing well in NICU. Had headache last night after Nifedipine dose, but otherwise without complaints. Lochia scant, voiding, daily BM, tolerating regular diet and ambulating, edema improving. Pain well controlled with oral pain meds. 07/19/17 17:53 Pt is feeling well. Her pain is controlled with PO Ibuprofen and Percocet. She is ambulating and voiding without difficulty and has min lochia. She denies GILLIAM, scotomata, RUQ pain or s/sx's of pre-eclampsia. She is pumping and getting good amounts of colustrum. Baby is stable in NICU. - Delivery Providers Surgeon: Curt Alvarado Strategic Communications Manager: Maura Echeverria Anesthesiologist: Bk Cam - Delivery Number of Prior Sections: 1 Indications for Current Section: Arrest of Dilation Surgical Procedures: Emergent Intra-op Complications: None EBL: [address] [place] Data ROCIO: 09/21/17 Gestational Age: 30 week(s) and 6 day(s) Price Delivery Date: 07/13/17 Delivery Time: 23:12 Sex of Infant: Male [place] Weight (gm): 1200 kg Score (1 Min): 5 Score (5 Min): 7 Discharge Information - Discharge Information Prescriptions: oxyCODONE/APAP 5/325 [Percocet 5/325 (*)] 1 - 2 tab PO Q4HRS PRN #20 tab PRN Reason: Pain, Severe Able To Take Po Ibuprofen [Motrin (*)] 600 mg PO Q6HRS PRN #30 tab PRN Reason: post , inflammation NIFEdipine ER [Adalat CC 60 mg (*)] 60 mg PO DAILY #30 tab Condition: Good Instruction/Follow Up: One Week, Four Weeks, Six Weeks
[2017-07-19 19:17] VITALS: BP 163/104
== END 2017-07-19 18:50 | disposition home or self-care (01) | DRG 540 ==
LOC: FLD 19:10 → OBSVTOIN 20:04 → FOB 07-15 11:23
PROVIDERS: ADMIT Obstetrics & Gynecology; ATTEND Obstetrics & Gynecology
PROC: 10D00Z1 Extraction of Products of Conception, Low, Open Approach (ICD-10-PCS; principal; 2017-07-13)
DX: O14.24 HELLP syndrome, complicating childbirth (principal); O76 Abnormality in fetal heart rate and rhythm complicating labor and delivery; O34.211 Maternal care for low transverse scar from previous cesarean delivery; O69.81X0 Labor and delivery complicated by cord around neck, without compression, not applicable or unspecified; O69.82X0 Labor and delivery complicated by other cord entanglement, without compression, not applicable or unspecified; O09.523 Supervision of elderly multigravida, third trimester; Z3A.30 30 weeks gestation of pregnancy; Z37.0 Single live birth
CPT/HCPCS: J0610; J0690; J0702; J1100; J1170; J2405; J2590; J2704; J3010; J3105; J3475